=== PATIENT | female | born 2000 | race Caucasian/White ===

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

== ENCOUNTER 2025-07-27 05:24 | Inpatient (IN) ==
--- NOTE | 2025-07-23 13:07 | Anesthesiology Consultation ---
Date of Service July 23, 2025 Assessment & Plan (1) Encounter for pre-operative examination: - Per web development director on 07/23/25: No known infectious disease contacts, current infectious disease symptoms in past 10 days or COVID positive test result in the past 30 days. 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 History Surgery Operation Date: 07/27/25 07:30 Proposed Procedures p Section in LD (Delivery of Baby through abdominal incision) - Candice Gates DO Height/Weight Height: 5 ft 1 in Weight: 135.624 kg Allergies Allergy/AdvReac Type Severity Reaction Status Date / Time No Known Allergies Allergy Verified 07/23/25 12:19 Medications Home Medications Medication Instructions Recorded Confirmed Last Taken [id number] 1 dose PO DAILY 12/22/24 07/23/25 Unknown [ Plus] Past Medical History Medical History (Updated 07/23/25 @ 13:06 by Kelley Beckman PA-C) Body mass index (BMI) of 40.0 to 44.9 in adult (03/27/19) Esophagitis, eosinophilic (05/28/17) History of COVID-2020 Lactose intolerance (08/18/17) Morbid obesity due to excess calories (03/14/19) Past Family History Family History Denies family history of Ovarian cancer Breast cancer Colorectal cancer Past Surgical History Surgical History H/O section x1 History of removal of skin mole History of tooth extraction Hx of LASIK [place] teeth extracted Social History Smoking Status: Never smoker Do You Dip or Chew Tobacco: No Hx Alcohol Use: No Hx Substance Use: No substance use type: does not use
--- NOTE | 2025-07-26 17:13 | History & Physical Report ---
Date of Service July 26, 2025 Assessment & Plan (1) Previous delivery affecting : Plan: Plan for repeat section, reviewed consent in detail. Questions answered. History of Present Illness Chief Complaint: scheduled Primary Care Provider: Sarah Gold MD 24yo with EDC 08/03/25 and Delivery Plans Obesity (BMI 40 and higher @ beginning of ) *Growth US @ 32wks *Weekly NSTs @ 34wks *BMI 40 or above offer delivery by EDC. *BMI 50 or greater scheduled detailed/level II anatomy at [facility] ([place]19[place] [facility] [place] Prior x1 - would like repeat C/S SCHEDULED FOR 07/27/[address] GEORGE AND DR. ABURTO ASSIST Rh Negative *Rhogam given in ER on 12/08/24* +antibody screen 12/28/23 due to Rhogam - Rhogam given 05/15/25- MK Hepatitis B non-immune recommend vaccine with PCP GBS Bacteriuria-treat in labor Allergies Allergy/AdvReac Type Severity Reaction Status Date / Time No Known Allergies Allergy Verified 07/26/25 08:54 Home Medications Medication Instructions Recorded Confirmed Type kajnwzsa-skw-Jp-FA 1 dose PO DAILY 12/22/24 07/26/25 History [ Plus] Patient History Medical History Body mass index (BMI) of 40.0 to 44.9 in adult (03/27/19) Esophagitis, eosinophilic (05/28/17) History of COVID-2020 Lactose intolerance (08/18/17) Morbid obesity due to excess calories (03/14/19) Surgical History H/O section x1 History of removal of skin mole History of tooth extraction Hx of LASIK [place] teeth extracted Family History Denies family history of Ovarian cancer Breast cancer Colorectal cancer Social History Smoking Status: Never smoker Second Hand Exposure: No; Do You Dip or Chew Tobacco: No; Hx Alcohol Use: No Hx Substance Use: No Preferred Language: Mauritanian Communication Ability: Effective Shopper Required: No Beliefs That Will Affect Care: None marital status: marital status details: Deejay Anderson (23) [phone] Current Living Situation: Spouse Current Living Situation Comment: Lives with and son, 3 cats and 1 dog- changes litter current occupational status: employed 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 No s/s chorio or abruption. Skin: no rashes, warm and dry Psychiatric: A+Ox3, euthymic affect Coding Level of Care Code None Diagnoses Previous delivery affecting O34.219
[2025-07-27] MEDS ORDERED: SODIUM CHLORIDE 0.9% 100 ML IV PRN (05:27)
[2025-07-27] MEDS: LACTATED RINGER'S 1,000 ML IV SCH ×4 (05:42→12:00)
[2025-07-27] MEDS: ACETAMINOPHEN 500 MG TAB PO SCH (06:05)
[2025-07-27 06:08] LABS: Hematocrit (blood only) 34.6 % (37.0-47.0); Hemoglobin 11.8 g/dl (12.0-16.0); Immature Granulocytes # (auto) 0.03 K/uL (0.01-0.20); Immature Granulocytes % (auto) 0.3 %; Mean Corpuscular Hemoglobin 29.2 pg (25.0-34.0); Mean Corpuscular Volume 85.6 fL (80.0-100.0); Platelet Count 215 K/uL (130-400); RDW Standard Deviation 44.7 fL (36.4-46.3); Red Blood Count 4.04 M/uL (4.20-5.40); White Blood Count 9.39 K/ul (4.8-10.8)
[2025-07-27] MEDS ORDERED: DEXAMETHASONE SOD INJ 4 MG/ML VIAL ONE (06:46)
[2025-07-27] MEDS ORDERED: ONDANSETRON INJ 2 MG/ML 2 ML VIAL ONE (06:46)
[2025-07-27] MEDS ORDERED: PHENYLEPHRINE HCL 25 MG/250 ML NSS IV ONE (06:46)
[2025-07-27] MEDS ORDERED: OXYTOCIN 10 UNITS/ML VIAL ONE (06:46)
[2025-07-27] MEDS ORDERED: MoRPHine SULFATE PF 1 MG/ML 10 ML AMP/VIAL ONE (06:47)
[2025-07-27] MEDS ORDERED: MoRPHine SULFATE 2 MG/ML CARP IV PRN (07:04)
[2025-07-27] MEDS ORDERED: diphenhydrAMINE 50 MG/ML VIAL IV PRN (07:04)
[2025-07-27] MEDS ORDERED: NALOXONE HCL 1 MG in SODIUM CHLORIDE 0.9% 1,000 ML IV PRN (07:04)
[2025-07-27] MEDS ORDERED: HYDROmorphone INJ 0.5 MG/0.5 ML SYR IV PRN (07:04)
[2025-07-27] MEDS ORDERED: PROMETHAZINE 6.25 MG/50.25 ML BAG IV PRN (07:04)
[2025-07-27] MEDS ORDERED: NALBUPHINE HCL INJ 10 MG/ML AMP IV PRN (07:04)
[2025-07-27] MEDS ORDERED: LACTATED RINGER'S 500 ML IV PRN (07:04)
[2025-07-27] MEDS ORDERED: NALOXONE HCL 0.4 MG/1 ML VIAL/CARP IV PRN (07:04)
[2025-07-27] MEDS ORDERED: NALOXONE HCL 0.08 MG in SYRINGE 1.8 ML IV PRN (07:04)
[2025-07-27] MEDS ORDERED: DC INTRASPINAL MORPHINE SCH (07:15)
[2025-07-27] MEDS ORDERED: NO NARCOTICS OR SEDATIVES SCH (07:15)
--- NOTE | 2025-07-27 07:22 | History & Physical Bridge Note ---
Date of Service July 27, 2025 History & Physical Bridge Note I have examined the patient, reviewed the History & Physical and in the interval since the performance of the History & Physical I have noted the following changes of clinical significance: no changes noted
[2025-07-27] MEDS: CITRIC ACID/SODIUM CITRATE 15 ML UDC PO SCH (07:41)
[2025-07-27] MEDS: ceFAZolin 3,000 MG/72.5 ML BAG IV SCH (07:41)
[2025-07-27 08:50] LABS: Base Excess Cord Arterial Bld -2.4 mEq/L (-9-1.8); CO2 Cord Arterial Blood 45 mmHg (39.1-73.5); HCO3 Cord Arterial Blood 24 mmol/L (19.7-28.5); Oxygen Sat Cord Arterial Blood 67.1 % (<60); PO2 Cord Arterial Blood 34 mmHg (4.1-31.7); pH Cord Arterial Blood 7.33 (7.1-7.38)
[2025-07-27 08:51] LABS: Base Excess Cord Venous Blood 0.3 mEq/L (-7.7-1.9); Cord Venous Blood PO2 31 mmHg (14.1-43.3); O2 Saturation Cord Venous Bld < 60.0 % (<68)
--- NOTE | 2025-07-27 09:08 | Operative Report ---
Post Operative Report Pre & Post Diagnosis Operation Date: 07/27/25 07:30 Pre-Op Diagnosis: 1. History of x 1, desire for repeat Post-Op Diagnosis: 1. History of x 1, desire for repeat I identified the patient and participated in the time-out.: Yes Procedure Operation Date: 07/27/25 07:30 Actual Procedures p Repeat Low Transverse Section in - [facility] [place] 8:21 - Candice Gates DO Surgeon Candice Gates DO Practice Director Mike Fine MD Quantitative Blood Loss (QBL) 267 Findings Consistent with Post-Op Diagnosis Viable male , Apgars 8/9. Please see nursery records for weight. Normal appearing uterus, tubes, ovaries. Specimens placenta, cord blood, cord gas Drains covarrubias clear yellow Anesthesia Type Spinal Complications none Disposition Accompanied Patient To Recovery: Yes Disposition: L&D Indications 24yo @ 39 0/7, h/o section with desire for repeat. Obesity, Rh negative, GBS+. Description of Procedure The patient was seen in her labor and delivery room, risks benefits and alternatives to surgery were reviewed. Informed consent obtained. Questions were answered. She was taken to the operating room, spinal anesthesia was administered. She was then prepared and draped in the usual sterile fashion in the supine position with a leftward tilt, pannus retractor. Timeout was confirmed. A Pfannenstiel skin incision was made with a scalpel, and carried through to the underlying layer of fascia. Fascia was nicked at midline, and this incision was extended bilaterally. The superior aspect of the fascial incision was grasped with Briana clamps x2, elevated off the underlying rectus abdominis muscles, and dissected sharply and bluntly. In similar fashion, the inferior aspect of the fascial incision was dissected. The rectus abdominis muscles were , and the peritoneum was entered bluntly digitally. This was extended bilaterally. The bladder flap was taken down carefully using Metzenbaum scissors. Using a new scalpel, a low transverse uterine incision was created. Clear amniotic fluid noted. The infant was delivered from a cephalic presentation. The head delivered, followed by shoulders and body. Spontaneous cry on the field. The cord was doubly clamped and cut, and the infant was handed off to the waiting flight radio officer. A segment was retained for cord gases. Cord blood was obtained. The placenta was delivered spontaneously intact. The uterus was exteriorized, and cleared of all clots and debris. The hysterotomy incision was reapproximated using 0 Vicryl in a running locked stitch. A second layer of the same suture was used to imbricate the incision. Posterior uterus was evaluated and normal. The uterus was returned to the abdomen, and gutters were cleared of clots and debris. Excellent hemostasis was observed. The fascial incision was reapproximated using 0 Vicryl in a running stitch. The subcutaneous tissue was irrigated, and reapproximated using 2-0 plain gut in a running stitch. The skin was reapproximated using 4-0 Vicryl in a running subcuticular stitch. GRZEGORZ dressing applied. The patient tolerated the procedure well, and will be taken to the recovery area in stable and good condition. I attest to the content of the Intraoperative Record and any orders documented therein. Any exceptions are noted below. OB Procedure Charges [id number]
--- NOTE | 2025-07-27 09:14 | Anesthesiology Progress Note ---
Date of Service July 27, 2025 Anesthesia Post Procedure Vital Signs Vital Signs: Temp Pulse Resp BP Pulse Ox 07/27/25 09:10 88 120/63 07/27/25 09:09 83 96 07/27/25 07:20 36.9 C 18 07/27/25 07:04 36.9 C 96 H 20 117/73 07/27/25 05:39 36.8 C 90 20 104/57 L 07/27/25 05:38 90 104/57 L Transfer of Care Handoff Completed per policy Notes Mental Status: alert / awake / arousable and participated in evaluation Patient Amnestic to Procedure: Yes Nausea / Vomiting: adequately controlled Pain: adequately controlled Airway Patency, RR, SpO2: stable & adequate BP & HR: stable & adequate Hydration State: stable & adequate Neuraxial Anesthesia: was administered and sensory block is resolving Anesthetic Complications: no major complications apparent and Pt Satisfied with anesthetic care
[2025-07-27] MEDS ORDERED: SENNA 8.6 MG TAB PO PRN (09:18)
[2025-07-27] MEDS ORDERED: BENZOCAINE 20% SPRY 85 APPLN/85 GM CAN EXT PRN (09:18)
[2025-07-27] MEDS ORDERED: MAGNESIUM HYDROXIDE SUSP 30 ML UDC PO PRN (09:18)
[2025-07-27] MEDS ORDERED: HYDROCORTISONE ACETATE 25 MG SUPP PR PRN (09:18)
[2025-07-27] MEDS ORDERED: CALCIUM CARBONATE 500 MG CHEWABLE TAB PO PRN (09:18)
[2025-07-27] MEDS: OXYTOCIN 20 UNITS/LR 1,002 ML IV SCH (09:26)
[2025-07-27] MEDS: KETOROLAC 30 MG/ML VIAL IV SCH (09:47)
[2025-07-27] MEDS: DIPHTHER/TETAN/PERTUS Vaccine (Tdap, Adol/Adult) 0.5mL IM ONE (10:44)
[2025-07-27] MEDS: OXYTOCIN 20 UNITS/1002ML LR IV ONE (10:47)
[2025-07-27] MEDS: MoRPHine SULFATE PF 1 MG/ML 10 ML AMP/VIAL INT SPINAL ONE (10:48)
[2025-07-27] MEDS: SODIUM CHLORIDE 0.9% 1,000 ML IV SCH (10:48)
--- NOTE | 2025-07-27 12:45 | Anesthesiology Progress Note ---
Date of Service July 27, 2025 Anesthesia Post Procedure Vital Signs Vital Signs: Temp Pulse Pulse Resp BP BP Pulse Ox 07/27/25 12:04 81 85/56 L 07/27/25 11:50 36.7 C 73 20 89/56 L 98 07/27/25 11:40 20 98 07/27/25 11:26 36.7 C 65 20 114/57 L 07/27/25 11:24 60 97 07/27/25 11:19 72 97 07/27/25 11:14 82 98 07/27/25 11:10 70 193/157 H 07/27/25 11:09 67 98 07/27/25 11:04 56 L 97 07/27/25 10:59 72 97 07/27/25 10:56 36.7 C 20 07/27/25 10:54 74 97 07/27/25 10:50 67 106/66 07/27/25 10:49 78 97 07/27/25 10:44 70 97 07/27/25 10:40 18 07/27/25 10:39 98 07/27/25 10:39 63 07/27/25 10:39 71 111/54 L 07/27/25 10:34 68 97 07/27/25 10:29 78 107/54 L 97 07/27/25 10:24 71 97 07/27/25 10:19 69 103/53 L 97 07/27/25 10:14 63 95 07/27/25 10:13 57 L 115/48 L 07/27/25 10:10 18 07/27/25 10:10 18 07/27/25 10:09 60 97 07/27/25 10:04 66 97 07/27/25 10:00 18 07/27/25 09:59 66 96 07/27/25 09:54 61 97 07/27/25 09:50 69 18 103/53 L 97 07/27/25 09:50 61 115/53 L 07/27/25 09:49 64 96 07/27/25 09:44 73 97 07/27/25 09:40 18 07/27/25 09:39 69 97 07/27/25 09:34 72 97 07/27/25 09:30 18 07/27/25 09:30 68 132/60 07/27/25 09:29 67 97 07/27/25 09:24 76 98 07/27/25 09:19 89 125/70 96 07/27/25 09:14 92 H 96 07/27/25 09:10 88 120/63 07/27/25 09:09 83 96 07/27/25 07:20 36.9 C 18 07/27/25 07:04 36.9 C 96 H 20 117/73 07/27/25 05:39 36.8 C 90 20 104/57 L 07/27/25 05:38 90 104/57 L O2 Del Method 07/27/25 12:04 07/27/25 11:50 Room Air 07/27/25 11:40 07/27/25 11:26 07/27/25 11:24 07/27/25 11:19 07/27/25 11:14 07/27/25 11:10 07/27/25 11:09 07/27/25 11:04 07/27/25 10:59 07/27/25 10:56 07/27/25 10:54 07/27/25 10:50 07/27/25 10:49 07/27/25 10:44 07/27/25 10:40 07/27/25 10:39 07/27/25 10:39 07/27/25 10:39 07/27/25 10:34 07/27/25 10:29 07/27/25 10:24 07/27/25 10:19 07/27/25 10:14 07/27/25 10:13 07/27/25 10:10 07/27/25 10:10 07/27/25 10:09 07/27/25 10:04 07/27/25 10:00 07/27/25 09:59 07/27/25 09:54 07/27/25 09:50 07/27/25 09:50 07/27/25 09:49 07/27/25 09:44 07/27/25 09:40 07/27/25 09:39 07/27/25 09:34 07/27/25 09:30 07/27/25 09:30 07/27/25 09:29 07/27/25 09:24 07/27/25 09:19 07/27/25 09:14 07/27/25 09:10 07/27/25 09:09 07/27/25 07:20 07/27/25 07:04 07/27/25 05:39 07/27/25 05:38 Transfer of Care Handoff Completed per policy Notes Mental Status: alert / awake / arousable and participated in evaluation Patient Amnestic to Procedure: Yes Nausea / Vomiting: adequately controlled Pain: adequately controlled Airway Patency, RR, SpO2: stable & adequate BP & HR: stable & adequate Hydration State: stable & adequate Neuraxial Anesthesia: was administered and sensory block is resolving Anesthetic Complications: no major complications apparent and Pt Satisfied with anesthetic care
[2025-07-27] MEDS: ONDANSETRON INJ 2 MG/ML 2 ML VIAL IV PRN (12:51)
[2025-07-27 14:49] LABS: Hematocrit (blood only) 35.5 % (37.0-47.0); Hemoglobin 12.1 g/dl (12.0-16.0)
[2025-07-27] MEDS: ACETAMINOPHEN 325 MG TAB PO SCH (15:43)
[2025-07-27] MEDS: SIMETHICONE 80 MG CHEW PO SCH (15:43)
[2025-07-27] MEDS: DOCUSATE SODIUM 100 MG CAP PO SCH (21:20)
[2025-07-28] MEDS ORDERED: PROMETHAZINE 12.5 MG/50.5 ML BAG IV PRN (01:05)
[2025-07-28] MEDS ORDERED: diphenhydrAMINE 50 MG/ML VIAL IV PRN (01:05)
[2025-07-28] MEDS ORDERED: diphenhydrAMINE Capsule 25 MG CAP PO PRN (01:05)
[2025-07-28] MEDS ORDERED: ONDANSETRON INJ 2 MG/ML 2 ML VIAL IV PRN (01:05)
[2025-07-28] MEDS ORDERED: HYDROmorphone INJ 0.5 MG/0.5 ML SYR IV PRN (01:05)
--- NOTE | 2025-07-28 07:37 | Obstetrical Progress Note ---
Date of Service July 28, 2025 Assessment & Plan (1) care following delivery: POD#1 doing well. GRZEGORZ dressing CDI. Routine care. Subjective Ambulation: ambulating normally Voiding: no voiding problems Diet Tolerance:: regular diet Lochia:: Moderate Review of Systems All systems reviewed & are unremarkable except as noted in HPI & below Physical Exam Constitutional WD/WN, vitals as above no acute distress Respiratory normal respiratory effort Cardiovascular Rate/Rhythm: regular rate and regular rhythm Gastrointestinal (Abdomen) Inspection/Auscultation: abdomen normal to inspection; abdomen not distended Percussion/Palpation: abdomen soft Genitourinary OB Exam Abdomen: + fundal height Fundus: + firm; not tender Results & Data Vital Signs (Past 12 Hours) Vital Signs Temp Pulse Resp BP Pulse Ox O2 Del Method 07/28/25 03:15 36.8 C 66 16 102/67 97 Room Air 07/28/25 01:00 16 97 07/28/25 01:00 36.7 C 65 18 100/64 97 Room Air 07/28/25 00:00 16 96 07/27/25 23:00 16 95 07/27/25 22:00 16 98 07/27/25 21:00 16 98 07/27/25 21:00 36.8 C 66 16 105/69 98 Room Air 07/27/25 20:00 18 98
[2025-07-28 08:08] LABS: Hematocrit (blood only) 33.3 % (37.0-47.0); Hemoglobin 10.6 g/dl (12.0-16.0); Immature Granulocytes # (auto) 0.03 K/uL (0.01-0.20); Immature Granulocytes % (auto) 0.3 %; Mean Corpuscular Hemoglobin 28.1 pg (25.0-34.0); Mean Corpuscular Volume 88.3 fL (80.0-100.0); Platelet Count 218 K/uL (130-400); RDW Standard Deviation 47.5 fL (36.4-46.3); Red Blood Count 3.77 M/uL (4.20-5.40); White Blood Count 10.67 K/ul (4.8-10.8)
[2025-07-28] MEDS: FERROUS SULFATE 325 MG TAB PO SCH (08:54)
[2025-07-28] MEDS: IBUPROFEN 600 MG TAB PO SCH (08:55)
[2025-07-28] MEDS: PRENATAL VITAMIN 1 TAB PO SCH (08:57)
[2025-07-28] MEDS ORDERED: KETOROLAC 30 MG/ML VIAL IV PRN (09:12)
[2025-07-28 16:57] VITALS: RESP 16
[2025-07-28 22:50] VITALS: O2SAT 98
[2025-07-29 07:50] LABS: Hematocrit (blood only) 35.1 % (37.0-47.0); Hemoglobin 11.1 g/dl (12.0-16.0)
[2025-07-29] MEDS ORDERED: IBUPROFEN 600 MG TAB PO PRN (09:12)
[2025-07-29 09:16] VITALS: BP 118/56; PULSE 78; TEMP 98.8
--- NOTE | 2025-07-29 09:50 | Obstetrical Progress Note ---
Date of Service July 29, 2025 Assessment & Plan (1) care following delivery: Day 2 status post repeat section. Patient doing well and stable for discharge as preferred. Plan for follow-up per surgeon recommendation for jose dressing care. Patient aware of recommendations related to jose dressing from delivering provider Subjective Ambulation: ambulating normally Voiding: no voiding problems Passing Gas:: Yes Diet Tolerance:: regular diet Lochia:: Moderate Reports doing well denying any concerns Physical Exam Constitutional WD/WN, vitals as above Respiratory normal respiratory effort; no respiratory distress and no labored breathing Cardiovascular Extremities: no calf tenderness Gastrointestinal (Abdomen) Inspection/Auscultation: abdomen normal to inspection; abdomen not distended Percussion/Palpation: abdomen soft; abdomen nontender, no guarding and abdomen not rigid Jose dressing in place and appears clean and dry Genitourinary OB Exam Abdomen: + fundal height Fundus: + firm and + relation to umbilicus (B elow); not tender or not boggy Results & Data Vital Signs (Past 12 Hours) Vital Signs Temp Pulse Resp BP Pulse Ox O2 Del Method 07/29/25 07:25 37.1 C 78 16 118/56 L Room Air 07/29/25 01:30 36.7 C 66 16 110/69 98 Room Air
[2025-07-29] MEDS ORDERED: ACETAMINOPHEN 325 MG TAB PO PRN (15:12)
== END 2025-07-29 11:45 | disposition home or self-care (01) | DRG 788 ==
LOC: 4S1 05:24 → EDSTATUS 09:00 → 4E2 11:40